=== PATIENT | male | born 1990 | race American Indian/Alaskan Native ===

== ENCOUNTER 2020-03-24 18:25 | Emergency (ER) | payer SELFPAY ==
[2020-03-24] MEDS ORDERED: DIPHtheria,PERTUSSIS(ACELL),TETANUS VACCINE/PF 0.5 ML VIAL IM ONE (20:20)
[2020-03-24] MEDS ORDERED: MUPIROCIN 2% OINT 22 GM TP ONE (20:20)
--- NOTE | 2020-03-24 20:44 | Emergency Department Report ---
ED Animal Bite HPI - General Chief Complaint: Animal Bite Stated Complaint: LFT ARM DOG BITE Time Seen by Provider: 03/24/20 20:19 Source: patient Mode of arrival: Ambulatory Limitations: No Limitations - History of Present Illness MD Complaint: animal bite (Dog bite to left forearm was placed and an activation and around 5:30 today. The) Animal: dog Animal Control Notified: No Description: household pet Mechanism: bite Pain Description: dull Context: other Associated Symptoms: none, bleeding. denies: discharge from wound, rash, loss of consciousness, diaphoresis, shortness of breath Treatments Prior to Arrival: wound dressing(s) - Related Data Previous Rx's Medication Instructions Recorded Last Taken Type Amoxicillin/Potassium Clav 1 each PO BID #20 tablet 03/24/20 Unknown Rx [Augmentin 875-125 Tablet] Ketorolac [Toradol] 10 mg PO Q6H PRN #10 tablet 03/24/20 Unknown Rx Mupirocin [Bactroban 2% OINT] 1 applic TP BID #1 tube 03/24/20 Unknown Rx Allergies Allergy/AdvReac Type Severity Reaction Status Date / Time No Known Allergies Allergy Unverified 03/24/20 19:32 ED Review of Systems ROS: Stated complaint: LFT ARM DOG BITE Other details as noted in HPI Comment: All other systems reviewed and negative ED Past Medical Hx - Past Medical History Previous Medical History?: No - Surgical History Past Surgical History?: No - Social History Smoking Status: Never Smoker Substance Use Type: Marijuana - Medications Home Medications: Home Medications Medication Instructions Recorded Confirmed Last Taken Type Amoxicillin/Potassium Clav 1 each PO BID #20 tablet 03/24/20 Unknown Rx [Augmentin 875-125 Tablet] Ketorolac [Toradol] 10 mg PO Q6H PRN #10 tablet 03/24/20 Unknown Rx Mupirocin [Bactroban 2% OINT] 1 applic TP BID #1 tube 03/24/20 Unknown Rx ED Physical Exam - General Limitations: No Limitations General appearance: alert, in no apparent distress - Head Head exam: Present: atraumatic, normocephalic - Eye Eye exam: Present: normal appearance - ENT ENT exam: Present: mucous membranes moist - Neck Neck exam: Present: normal inspection - Respiratory Respiratory exam: Present: normal lung sounds bilaterally. Absent: respiratory distress - Cardiovascular Cardiovascular Exam: Present: regular rate, normal rhythm. 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 Absent: vascular compromise - Back Exam Back exam: Present: normal inspection - Neurological Exam Neurological exam: Present: alert, oriented X3 - Psychiatric Psychiatric exam: Present: normal affect, normal mood - Skin Skin exam: Present: warm, dry, normal color. Absent: intact (Has puncture wound to the left forearm with some superficial abrasion in the area of the mid mid medial mid medial forearm resuming a bite mara), rash ED Course Vital Signs 03/24/20 19:21 Temperature 98.4 F Pulse Rate 76 Respiratory 18 Rate Blood Pressure 140/77 O2 Sat by Pulse 95 Oximetry Critical care attestation.: If time is entered above; I have spent that time in minutes in the direct care of this critically ill patient, excluding procedure time. ED Disposition Clinical Impression: Dog bite Disposition: DC-01 TO HOME OR SELFCARE Is pt being admited?: No Does the pt Need Aspirin: No Condition: Stable Instructions: Animal Bite (ED) Additional Instructions: Please follow-up with with animal control and follow-up there the recommendations in regards to the utilization of a rabies vaccination being the patient the dog was a household pet and in your description and presentation of the injury a rabies vaccine most likely will not be needed Prescriptions: Amoxicillin/Potassium Clav [Augmentin 875-125 Tablet] 1 each PO BID #20 tablet Mupirocin [Bactroban 2% OINT] 1 applic TP BID #1 tube Ketorolac [Toradol] 10 mg PO Q6H PRN #10 tablet PRN Reason: Pain Referrals: PRIMARY CARE,MD [Primary Care Provider] - 3-5 Days [facility] [Provider Group] - 3-5 Days
[2020-03-24 21:22] VITALS: BP 130/94
== END 2020-03-24 22:09 | disposition home or self-care (01) ==
LOC: ED 18:25
DX: S51.852A Open bite of left forearm, initial encounter (principal); W54.0XXA Bitten by dog, initial encounter; Y93.89 Activity, other specified; Y92.89 Other specified places as the place of occurrence of the external cause; Y99.8 Other external cause status; F12.10 Cannabis abuse, uncomplicated; Z79.899 Other long term (current) drug therapy
CPT/HCPCS: 90471; 90715; 99282

== ENCOUNTER 2020-04-08 06:31 | Emergency (ER) | payer SELFPAY ==
[2020-04-08 07:17] VITALS: BP 120/68
[2020-04-08] MEDS ORDERED: TETRACAINE 0.5% OPHTH SOLN 4ML OD ONE (08:57)
[2020-04-08] MEDS ORDERED: FLUORESCEIN 1 MG STRIP OP ONE (08:58)
--- NOTE | 2020-04-08 09:03 | Emergency Department Report ---
ED Eye Problem HPI - General Chief complaint: Eye Problems Stated complaint: LEFT EYE PAIN Time Seen by Provider: 04/08/20 08:56 Source: patient Mode of arrival: Ambulatory Limitations: No Limitations - History of Present Illness Initial comments: 30-year-old male states that he was driving home last night around 8:30 PM when he noticed that the headlights was irritating his left eye. He felt as if there was a foreign body in the left eye. 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 He is now complaining of left eye being sensitive to the light and feeling irritated. He has no difficulty seeing no blurry vision. Patient denies any trauma or direct blow to his to his eye. He denies any splash of chemical to his eye. Patient has no recent eye procedure no history of diabetes no medical history. MD chief complaint: eye pain, foreign body -: Last night (8:30 PM) Place: street/outdoors (Symptoms started while he was driving) If Injury: none Eye Symptoms: pain, foreign body sensation If Pain, Quality: other (Irritation) Consistency: constant Associated Symptoms: none. denies: headache, neck pain, cough, rhinorrhea, fever, shortness of breath Treatments Prior to Arrival: irrigated eye (Irrigated with water), other - Related Data Patient Tetanus UTD: Yes Previous Rx's Medication Instructions Recorded Last Taken Type Amoxicillin/Potassium Clav 1 each PO BID #20 tablet 03/24/20 Unknown Rx [Augmentin 875-125 Tablet] Ketorolac [Toradol] 10 mg PO Q6H PRN #10 tablet 03/24/20 Unknown Rx Mupirocin [Bactroban 2% OINT] 1 applic TP BID #1 tube 03/24/20 Unknown Rx Allergies Allergy/AdvReac Type Severity Reaction Status Date / Time No Known Allergies Allergy Unverified 03/24/20 19:32 ED Review of Systems ROS: Stated complaint: LEFT EYE PAIN Other details as noted in HPI Eyes: eye pain. denies: eye discharge, vision change ED Past Medical Hx - Past Medical History Previous Medical History?: No - Surgical History Past Surgical History?: No - Social History Smoking Status: Current Every Day Smoker - Medications Home Medications: Home Medications Medication Instructions Recorded Confirmed Last Taken Type Amoxicillin/Potassium Clav 1 each PO BID #20 tablet 03/24/20 Unknown Rx [Augmentin 875-125 Tablet] Ketorolac [Toradol] 10 mg PO Q6H PRN #10 tablet 03/24/20 Unknown Rx Mupirocin [Bactroban 2% OINT] 1 applic TP BID #1 tube 03/24/20 Unknown Rx ED Physical Exam - General Limitations: No Limitations General appearance: alert, in no apparent distress - Head Head exam: Present: atraumatic - Eye Eye exam: Present: normal appearance, PERRL, EOMI. Absent: conjunctival injection, periorbital swelling, periorbital tenderness Pupils: Present: normal accommodation - ENT ENT exam: Present: normal exam, mucous membranes moist - Neck Neck exam: Present: normal inspection - Cardiovascular Cardiovascular Exam: Present: regular rate, normal heart sounds - GI/Abdominal GI/Abdominal exam: Present: soft. Absent: distended, tenderness, guarding - Rectal Rectal exam: Present: deferred - exam: Present: testicular tenderness - Extremities Exam Extremities exam: Present: normal inspection - Neurological Exam Neurological exam: Present: alert, oriented X3 - Skin Skin exam: Present: warm, dry, intact, normal color ED Course Vital Signs 04/08/20 07:14 Temperature 98.3 F Pulse Rate 63 Respiratory 18 Rate Blood Pressure 120/68 O2 Sat by Pulse 96 Oximetry - Eye Procedure Alcaine Drops Administered: No Eye Irrigated w/ Saline (ccs): 20 Progress: 31-year-old male left eye with no redness no periorbital swelling and no discharge pupils are equal and reactive to light extraocular movement intact. Tetracaine 1 drop applied to the left eye. Left eye stained with fluorescein stain. And examined under Cline lamp. No foreign body or signs of corneal a brasion noted. Patient I then rinsed with 20 cc of normal saline. 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 His left eye is sensitive to light he complained of feeling irritation and pain. He could not recall any history of any chemicals or any known injury or foreign body in his left eye. However he does have a foreign body sensation. after examination of patient his eyelids were flipped and examination done with Cline lamp there were no sign of foreign body no sign of corneal abrasion normal intraocular pressure of the left eye at 15 mm . patient tolerated well there is no drainage no redness no irritation. Plan is for patient to follow-up with assistant farm operations manager . Critical care attestation.: If time is entered above; I have spent that time in minutes in the direct care of this critically ill patient, excluding procedure time. ED Disposition Clinical Impression: Irritation of left eye, Sensation of foreign body in eye Disposition: DC- TO HOME OR SELFCARE Is pt being admited?: No Does the pt Need Aspirin: No Condition: Stable Instructions: Eye Foreign Body Additional Instructions: Please call and follow-up with an eye doctor of your choice as soon as possible or you can follow-up with the [facility] on [address] [place], [place]. [address] [place] [address] [phone] , or return to the emergency room for any worsening symptoms including changes in your vision or worsening pain Referrals: PRIMARY CAREMD [Primary Care Provider] - 3-5 Days SHARON ALBRIGHT MD [Staff Physician] - 3-5 Days DESIREE CANO MD [Staff Physician] - 3-5 Days Time of Disposition: 10:13
== END 2020-04-08 10:23 | disposition home or self-care (01) ==
LOC: ED 06:31
DX: T15.92XA Foreign body on external eye, part unspecified, left eye, initial encounter (principal); F17.200 Nicotine dependence, unspecified, uncomplicated; Z79.899 Other long term (current) drug therapy; W45.8XXA Other foreign body or object entering through skin, initial encounter; Y93.89 Activity, other specified; Y92.89 Other specified places as the place of occurrence of the external cause; Y99.8 Other external cause status
CPT/HCPCS: 99283

== ENCOUNTER 2021-12-09 12:11 | Emergency (ER) | payer SELFPAY | END 2021-12-09 19:00 | disposition left against medical advice (07) | LOC: ED 12:11 | DX: T14.8XXA Other injury of unspecified body region, initial encounter (principal); Z53.21 Procedure and treatment not carried out due to patient leaving prior to being seen by health care provider; W57.XXXA Bitten or stung by nonvenomous insect and other nonvenomous arthropods, initial encounter; Y93.89 Activity, other specified; Y92.89 Other specified places as the place of occurrence of the external cause; Y99.8 Other external cause status ==